=== PATIENT | female | born 1985 | race African-American/Black ===

== ENCOUNTER → 2019-05-16 | Emergency (ER) | payer OTHER | LOC: JER 17:02 ==

== ENCOUNTER 2019-09-18 16:58 | Emergency (ER) | payer OTHER ==
--- NOTE | 2019-09-18 17:23 | PDOC ---
Rapid Medical Evaluation Time Seen by Provider: 09/18/19 17:20 Medical Evaluation: Allergies Allergy/AdvReac Type Severity Reaction Status Date / Time almond Allergy Verified 05/16/19 17:15 09/18/19 17:20 This patient received a in-person evaluation in triage cc/HPI: bodyaches, productive cough, hoarseness and stuffy nose 1 week. Patient states cough produces, yellow, greenish mucus that is blood tinged PE: NAD lungs clear bilaterally heart s1s2 orders: urine This patient will proceed to ED for further evaluation Discharge Disposition - Diagnosis URI (upper respiratory infection) Qualifiers: URI type: unspecified viral URI Qualified Code(s): J06.9 - Acute upper respiratory infection, unspecified Otitis media Qualifiers: Otitis media type: suppurative Chronicity: acute Laterality: bilateral Recurrence: non-recurrent Spontaneous tympanic membrane rupture: without spontaneous rupture Qualified Code(s): H66.003 - Acute suppurative otitis media without spontaneous rupture of ear drum, bilateral - Discharge Dispostion Disposition: HOME Condition at time of disposition: Stable - Prescriptions Prescriptions: Albuterol Sulfate Inhaler - [Ventolin HFA Inhaler -] 1 - 2 inh PO Q4H #1 inhaler Amoxicillin - [Amoxicillin 500mg Capsule -] 500 mg PO BID #14 capsule Methylprednisolone [Medrol Dose Uri] 4 mg PO ASDIR #21 tablet - Referrals Referrals: Lakhwinder Cruz MD [Staff Physician] - - Patient Instructions Printed Discharge Instructions: DI for Viral Upper Respiratory Infection -- Adult, DI for Otitis Media (Middle Ear Infection)-Child Additional Instructions: You have an upper respiratory infection, which was likely the flu You are outside the the treatment window for tamiflu You also have an ear infection Take the medication as prescribed to help with your symptoms Drink plenty of fluids. Cough drops and warm tea may help your symptoms as well. Please follow up with her primary care doctor this week. Return to the emergency department if you have difficulty breathing, shortness of breath, worsening pain, nausea, vomiting or if you have any changes in your symptoms. - Post Discharge Activity Work/School Note: Back to Work
[2019-09-18 17:24] VITALS: BP 170/104; PULSE 75; TEMP 98.1; BMI 46.7
[2019-09-18] MEDS ORDERED: DEXAMETHASONE LIQUID 0.5 MG/5 ML PO ONE (18:30)
[2019-09-18] MEDS ORDERED: DEXAMETHASONE SOD PHOSPHATE 10 MG/1 ML VIAL ONE (18:58)
[2019-09-18] MEDS ORDERED: ALBUTEROL SO4 2.5/IPRATROPIUM 0.5 INH SOL 3 ML VIAL.NEB. NEB ONE (18:58)
[2019-09-18] MEDS: ALBUTEROL SO4 2.5/IPRATROPIUM 0.5 INH SOL 3 ML VIAL.NEB. NEB SCH ×3 (19:07→19:54)
--- NOTE | 2019-09-18 19:58 | PDOC ---
History of Present Illness - General Chief Complaint: Cold Symptoms Stated Complaint: COLD SYX Time Seen by Provider: 09/18/19 17:20 History Source: Patient Exam Limitations: No Limitations Past History - Travel Traveled outside of the country in the last 30 days: No Close contact w/someone who was outside of country & ill: No - Past Medical History Allergies/Adverse Reactions: Allergies Allergy/AdvReac Type Severity Reaction Status Date / Time almond Allergy Verified 09/18/19 17:20 Home Medications: Ambulatory Orders Methocarbamol [Robaxin-750] 750 mg PO QID #12 tablet 05/16/19 Albuterol Sulfate Inhaler - [Ventolin HFA Inhaler -] 1 - 2 inh PO Q4H #1 inhaler 09/18/19 Amoxicillin - [Amoxicillin 500mg Capsule -] 500 mg PO BID #14 capsule 09/18/19 Methylprednisolone [Medrol Dose Uri] 4 mg PO ASDIR #21 tablet 09/18/19 Asthma: Yes COPD: No Diabetes: Yes HTN: Yes - Immunization History Immunization Up to Date: Yes - Psycho Social/Smoking Cessation Hx Smoking History: Never smoked Have you smoked in the past 12 months: No Information on smoking cessation initiated: No Hx Alcohol Use: No Drug/Substance Use Hx: No Review of Systems - Review of Systems Able to Perform ROS?: Yes Comments:: 09/18/19 19:58 CONSTITUTIONAL: Present: Fever, chills, body aches Absent: diaphoresis, generalized weakness, malaise, loss of appetite HEENT: Present: rhinorrhea, nasal congestion, throat pain. Absent: difficulty swallowing, mouth swelling, ear pain, eye pain, visual Changes CARDIOVASCULAR: Absent: chest pain, loss of consciousness, palpitations, irregular heart rate, peripheral edema RESPIRATORY: Present: Cough Absent: shortness of breath, dyspnea with exertion, orthopnea, wheezing, stridor, hemoptysis GASTROINTESTINAL: Absent: abdominal pain, abdominal distension, nausea, vomiting, diarrhea, constipation, melena, hematochezia SKIN: Absent: rash, itching, pallor NEUROLOGIC: Present: headache Absent: focal weakness or paresthesias, dizziness, unsteady gait, seizure, mental status changes, bladder or bowel incontinence Is the patient limited [place] Islander proficient: No *Physical Exam - Vital Signs Last Vital Signs Temp Pulse Resp BP Pulse Ox 98.1 F 75 17 170/104 H 100 09/18/19 17:20 09/18/19 17:20 09/18/19 17:20 09/18/19 17:20 09/18/19 17:20 - Physical Exam 09/18/19 19:59 GENERAL: The patient is awake, alert, and fully oriented, in no acute distress. HEAD: Normal with no signs of trauma. EYES: Pupils equal, round and reactive to light, extraocular movements intact, sclera anicteric, conjunctiva clear. HEENT: No nasal congestion or rhinorrhea. No sinus Tenderness. Mucous membranes are moist. No tonsillar erythema, exudate or edema. Uvula is midline. No TM bulging , dullness or erythema LUNGS: Lungs are clear to auscultation bilaterally with no wheezes rales or rhonchi. Good excursion. Heart: Regular rate and rhythm S1-S2 present no murmurs rubs or gallops. No palpable chest wall pain. EXTREMITIES: Normal range of motion, no edema. NEUROLOGICAL: Normal speech, normal gait. PSYCH: Normal mood, normal affect. SKIN: Warm, Dry, normal turgor, no rashes or lesions noted. ED Treatment Course - RADIOLOGY Radiology Studies Ordered: Category Date Time Status CHEST PA & LAT [RAD] Stat Radiology 09/18/19 18:30 Ordered - Medications Given in the ED: ED Medications Discontinued Medications Generic Name Dose Route Start Last Admin Trade Name Freq PRN Reason Stop Dose Admin Albuterol/Ipratropium 1 amp 09/18/19 18:30 09/18/19 19:07 Duoneb - NEB 09/18/19 19:16 1 amp Q15M TIFFANY Administration Dexamethasone 10 mg 09/18/19 18:30 09/18/19 19:07 Decadron Liquid - PO 09/18/19 18:31 10 mg ONCE ONE Administration Medical Decision Making - Medical Decision Making 09/18/19 20:00 The patient is a 33-year-old female with past medical history of hypertension, did not take her medications today, presents to the ER today for 1 week of fevers, cough, chest tightness, sore throat and earache. She did not get a flu shot this year. She is not taken any medication for her symptoms. A/P: Upper respiratory infection, likely influenza On exam patient with a bilateral otitis media. Lungs are clear to auscultation bilaterally with no wheezes rales or rhonchi. Patient cannot take a deep breath without coughing. Likely bronchitis element. Patient sent for chest x-ray. Breathing improved after DuoNeb's and Decadron. We will also give Motrin and Tylenol for the pain. Discharge home with symptomatic treatment and primary care follow-up I discussed the physical exam findings, ancillary test results and final diagnoses with the patient. I answered all of the patient's questions. The patient was satisfied with the care received and felt comfortable with the discharge plan and treatment plan. The Patient agrees to follow up with the primary care physician/specialist within 24-72 hours. Return precautions were given. Discharge - Discharge Information Problems reviewed: Yes Clinical Impression/Diagnosis: URI (upper respiratory infection) Qualifiers: URI type: unspecified viral URI Qualified Code(s): J06.9 - Acute upper respiratory infection, unspecified Otitis media Qualifiers: Otitis media type: suppurative Chronicity: acute Laterality: bilateral Recurrence: non-recurrent Spontaneous tympanic membrane rupture: without spontaneous rupture Qualified Code(s): H66.003 - Acute suppurative otitis media without spontaneous rupture of ear drum, bilateral Condition: Stable Disposition: HOME - Admission No - Additional Discharge Information Prescriptions: Albuterol Sulfate Inhaler - [Ventolin HFA Inhaler -] 1 - 2 inh PO Q4H #1 inhaler Amoxicillin - [Amoxicillin 500mg Capsule -] 500 mg PO BID #14 capsule Methylprednisolone [Medrol Dose Uri] 4 mg PO ASDIR #21 tablet - Follow up/Referral Referrals: Lakhwinder Cruz MD [Staff Physician] - - Patient Discharge Instructions Patient Printed Discharge Instructions: DI for Viral Upper Respiratory Infection -- Adult, DI for Otitis Media (Middle Ear Infection)-Child Additional Instructions: You have an upper respiratory infection, which was likely the flu You are outside the the treatment window for tamiflu You also have an ear infection Take the medication as prescribed to help with your symptoms Drink plenty of fluids. Cough drops and warm tea may help your symptoms as well. Please follow up with her primary care doctor this week. Return to the emergency department if you have difficulty breathing, shortness of breath, worsening pain, nausea, vomiting or if you have any changes in your symptoms. - Post Discharge Activity Work/Back to School Note: Back to Work
[2019-09-18] MEDS ORDERED: IBUPROFEN 600 MG TABLET (FP) PO ONE ×2 (20:03→20:33)
[2019-09-18] MEDS ORDERED: ACETAMINOPHEN 325 MG TABLET (FP) PO ONE (20:03)
[2019-09-18] MEDS ORDERED: ACETAMINOPHEN 325 MG TABLET (FP) ONE (20:33)
== END 2019-09-18 20:00 | disposition home or self-care (01) ==
LOC: JER 16:58 → JERFT 16:58
PROC: 3E0F7GC Introduction of Other Therapeutic Substance into Respiratory Tract, Via Natural or Artificial Opening (ICD-10-PCS; principal; 2019-09-18)
DX: J06.9 Acute upper respiratory infection, unspecified (principal); H66.003 Acute suppurative otitis media without spontaneous rupture of ear drum, bilateral; Z91.018 Allergy to other foods; I10 Essential (primary) hypertension; E11.9 Type 2 diabetes mellitus without complications; J45.909 Unspecified asthma, uncomplicated
CPT/HCPCS: 71046-TC-FY; 99281-25